=== PATIENT | male | born 1990 | race Caucasian/White ===

== ENCOUNTER 2019-10-30 19:12 | Emergency (ER) | payer BC ==
[2019-10-30 20:27] VITALS: BP 135/70
== END 2019-10-30 20:27 | disposition home or self-care (01) ==
LOC: ED 19:12
DX: S61.210A Laceration without foreign body of right index finger without damage to nail, initial encounter (principal); Z23 Encounter for immunization; W26.8XXA Contact with other sharp object(s), not elsewhere classified, initial encounter; Y92.009 Unspecified place in unspecified non-institutional (private) residence as the place of occurrence of the external cause
CPT/HCPCS: 90715

== ENCOUNTER → 2019-11-09 | Outpatient (CLI) | payer BC ==
[~2019-11-09] VITALS: Ht 172.7 cm; Wt 79.5 kg
[2019-11-09 16:05] VITALS: BP 119/81
== END ==
LOC: AMSURD 15:46
DX: Z48.02 Encounter for removal of sutures (principal)